=== PATIENT | female | born 1955 | race Two or more races ===

== ENCOUNTER 2021-04-16 12:01 | Outpatient (CLI) | payer OTHER ==
[2021-04-22] MEDS ORDERED: HYDROCODONE/APAP 5/325MG TABLET PO PRN ×2 (09:00)
== END 2021-04-16 23:59 | disposition home or self-care (01) ==
LOC: LAB 12:01
PROVIDERS: ATTEND Specialist
DX: Z01.812 Encounter for preprocedural laboratory examination (principal); Z20.822 Contact with and (suspected) exposure to COVID-19
CPT/HCPCS: C9803; U0003

== ENCOUNTER 2021-04-22 05:34 | Day surgery (SDC) | payer OTHER ==
[~2021-04-22] VITALS: Ht 154.9 cm; Wt 57.6 kg
--- NOTE | 2021-04-22 06:00 | NUR ---
DAY SURGERY ADMISSION PATIENT ARRIVED ON UNIT, AMBULATORY, ALERT/ORIENTED X 4, PT ABLE TO MAKE NEEDS KNOWN. PATIENT STABLE ON RA, NO S/S OF DISTRESS OR SOB NOTED, BREATHING EVEN AND UNLABORED. MRSA SWAB DONE. PATIENT DENIES ALLERGIES TO MEDICATION, FOOD OR TAPE. PATIENT HAS BEEN NPO SINCE 9 PM LAST NIGHT, DID NOT TAKE ANY MEDICATIONS THIS MORNING. PATIENT IS FULLY VACCINATED FOR COVID, JIMMY AND JIMMY MAY 2020 AND JANUARY 2021. PATIENT STATES SHE TAKES TRAMADOL 50 MG PO BID PRN AND FOSAMAX 70 MG PO. BELONGINGS DOCUMENTED AND SHEET PLACED IN CHART. IV ACCESS INSERTED IN RIGHT AC #20G. SAFETY MEASURES IN PLACE: CALL LIGHT WITHIN REACH, SIDE RAILS UP X 2, BED LOCKED IN LOW POSITION. WILL CONTINUE TO MONITOR PATIENT
[2021-04-22] MEDS ORDERED: BUPIVACAINE 0.5 % PF 150 MG/30 ML VIAL ONE (06:17)
[2021-04-22] MEDS ORDERED: methylPREDNISolone ACETATE 80 MG/ML VIAL ONE (06:18)
--- NOTE | 2021-04-22 06:24 | NUR ---
RN NOTE PATIENT TAKEN TO SURGERY BY OR NURSE IN STABLE CONDITION
[2021-04-22] MEDS ORDERED: MIDAZOLAM HCL 2 MG/2ML VIAL ONE (06:34)
[2021-04-22] MEDS ORDERED: FAMOTIDINE/PF INJ 20 MG/2 ML VIAL IV ONE (06:34)
[2021-04-22] MEDS ORDERED: FENTANYL PF 250MCG/5ML AMPUL ONE (06:34)
--- NOTE | 2021-04-22 07:07 | NUR ---
RN NOTE PT CURRENTLY IN PROCEDURES WILL RE ASSESS
--- NOTE | 2021-04-22 07:08 | NUR ---
RN NOTE PATIENT'S JAMES LU [phone]
--- NOTE | 2021-04-22 08:43 | NUR ---
RN NOTE RECEIVED PATIENT FROM SURGERY. PATIENT IS A/O X4. PATIENT IS BREATHING EVENLY AND NONLABORED ON ROOM AIR. NO SIGNS OF DISTRESS SOB OR PAIN NOTED. VITALS BP 145/84, HR 80, TEMP 97.7, O2 SAT 99 % ON ROOM AIR. PATIENT HAS IV ACCESS TO RAC # 20 GAUGE. SAFETY MEASURES IN PLACE BED LOW LOCKED AND CALL LIGHT WITHIN REACH. WILL CONTINUE TO MONITOR
[2021-04-22] MEDS ORDERED: HYDROCODONE/APAP 5/325MG TABLET PO PRN ×3 (09:10→09:30)
--- NOTE | 2021-04-22 10:02 | NUR ---
YOUNG ADULT LIBRARIAN NOTE RECEIVED DISCHARGED ORDER. PATIENT IS A/O X4. PATIENT IS BREATHING EVENLY AND NONLABORED ON ROOM AIR. NO SIGNS OF DISTRESS SOB OR PAIN NOTED.PT WAS GIVEN DISCHARGE INSTRUCTIONS BOTH VERBALY WRITTEN FORM,PT VERBALLIZE UNDERSTANDING,PT BELONGING ACCOUNTED FOR AND BELONGING SIGN,IV ACCESS WAS REMOVED PRESSURED APPLIED NO BLEEDING NOTED.ID BAND REMOVED,PT LEFT STABLE CONDITION VIA PRIVATE CAR.
== END 2021-04-22 18:00 | disposition home or self-care (01) ==
LOC: DS 05:34 → MED 05:37 → UNDOADMIN 05:37 → UNDODISIN 09:30 → DS 18:00
PROVIDERS: ATTEND Specialist
DX: S83.242A Other tear of medial meniscus, current injury, left knee, initial encounter (principal); Z98.890 Other specified postprocedural states; Z79.899 Other long term (current) drug therapy; X58.XXXA Exposure to other specified factors, initial encounter; Y93.89 Activity, other specified; Y92.89 Other specified places as the place of occurrence of the external cause; Y99.8 Other external cause status
CPT/HCPCS: 29881; 82962; 87081; A4217; A6253; J0690; J1040; J1885; J2250; J2405; J2704; J2765; J3010; J3490 ×3; J7030; G0378